=== PATIENT | male | born 1960 | race Caucasian/White ===

== ENCOUNTER 2021-11-01 14:21 | Outpatient (CLI) | payer MEDICARE, MEDICAID ==
[2021-11-02 19:32] LABS: SARS-CoV-2 PCR by NAA Not Detected (NotDetected)
== END 2021-11-01 14:22 | disposition home or self-care (01) ==
LOC: CSHLAB 14:21
PROVIDERS: ATTEND Orthopaedic Surgery Orthopaedic Surgery of the Spine
DX: Z20.822 Contact with and (suspected) exposure to COVID-19 (principal); M54.16 Radiculopathy, lumbar region; Z98.1 Arthrodesis status
CPT/HCPCS: U0003; U0005